=== PATIENT | male | born 1995 | race Caucasian/White ===

== ENCOUNTER 2017-01-24 18:49 | Emergency (ER) | payer BC ==
[2017-01-24 19:01] VITALS: BP 129/73
[2017-01-24] MEDS ORDERED: DOXYcycline CAP(*) 100 MG PO ONE (19:11)
--- NOTE | 2017-01-24 19:19 | UC ---
Skin Complaint HPI - HPI Summary HPI Summary: pt presents with c/o tick bite to left lateral ankle. Pt reports that he noticed the tick 2 hours ago and removed it at home. Is concerned because area where tick was removed is bruised and mild erythema. Pt is unsure of how long tick was attached - History of Current Complaint Chief Complaint: UCSkin Time Seen by Provider: 01/24/17 19:05 Stated Complaint: TICK Hx Obtained From: Patient Onset/Duration: Sudden Onset Timing: Constant Onset Severity: Mild Current Severity: Mild Location: Discrete - left lateral ankle Character: Redness Aggravating: Touch Associated Signs & Symptoms: Positive: Bruising, Tenderness Related History: Insect Bite/Sting - Allergy/Home Medications Allergies/Adverse Reactions: Allergies Allergy/AdvReac Type Severity Reaction Status Date / Time peanuts Allergy Swelling Uncoded 01/24/17 19:01 Of Face,Lips,& Throat Review of Systems Constitutional: Negative Skin: Bruising, Other - erythema size of eraser head Eyes: Negative ENT: Negative Respiratory: Negative Cardiovascular: Negative Gastrointestinal: Negative Genitourinary: Negative Motor: Negative Neurovascular: Negative Musculoskeletal: Negative Neurological: Negative Psychological: Negative All Other Systems Reviewed And Are Negative: Yes PMH/Surg Hx/FS Hx/Imm Hx Previously Healthy: Yes Endocrine History Of: Denies: Diabetes, Thyroid Disease, Hyperthyroidism, Hypothyroidism, Dyslipidemia Cardiovascular History Of: Denies: Cardiac Disorders, Hypertension, Pacemaker/ICD, Myocardial Infarction , Congestive Heart Failure, Atrial Fibrillation, Deep Vein Thrombosis, Bleeding Disorders Respiratory History Of: Reports: Asthma Denies: COPD GI/ History Of: Denies: Gastroesophageal Reflux, Ulcer, Gastrointestinal Bleed, Gall Bladder Disease, Kidney Stones, Diverticulitis, Renal Disease, Urosepsis Neurological History Of: Denies: TIA, CVA, Dementia, Seizures, Migraine Psychological History Of: Denies: Anxiety, Depression, Bipolar Disorder, Schizophrenia, Post Traumatic Stress Disorder Cancer History Of: Denies: Lung Cancer, Colorectal Cancer, Breast Cancer, Prostate Cancer, Cervical Cancer Other History Of: Negative For: HIV, Hepatitis B, Hepatitis C, Anticoagulant Therapy - Surgical History Surgical History: None - Family History Known Family History: Positive: Other - positive FMH of abrasion - Social History Alcohol Use: None Substance Use Type: Excessive Caffeine Smoking Status (MU): Current Every Day Smoker Type: Cigars Amount Used/How Often: 5 CIGS PER DAY Have You Smoked in the Last Year: Yes Household Exposure Type: Cigarettes Physical Exam Triage Information Reviewed: Yes Appearance: Well-Appearing Vital Signs: Initial Vital Signs Temp 99.1 F 01/24/17 18:57 Pulse 73 01/24/17 18:57 Resp 17 01/24/17 18:57 BP 129/73 01/24/17 18:57 Pulse Ox 98 01/24/17 18:57 Vital Signs Reviewed: Yes Eye Exam: Normal Neck exam: Normal Respiratory Exam: Normal Cardiovascular Exam: Normal Musculoskeletal Exam: Normal Neurological Exam: Normal Psychological Exam: Normal Skin Exam: Other - left lateral malleolus , eraser size area that is bruised and mild erythema Course/Dx - Differential Diagnoses - Skin Complaint Differential Diagnoses: Cellulitis, Tick Born Illness, Other - insect bite - Diagnoses Provider Diagnoses: insect bite. possible exposure to tick borne illness Discharge - Discharge Plan Condition: Stable Disposition: HOME Patient Education Materials: Insect Bite or Sting (ED) Referrals: [facility] [Outside] Gayle Ware MD [Primary Care Provider] - If Needed Additional Instructions: Please follow up with your PCP or return to clinic as needed.
== END 2017-01-24 19:27 | disposition home or self-care (01) ==
LOC: UCCORT 18:49
DX: S90.562A Insect bite (nonvenomous), left ankle, initial encounter (principal); W57.XXXA Bitten or stung by nonvenomous insect and other nonvenomous arthropods, initial encounter; Y93.9 Activity, unspecified; Y99.9 Unspecified external cause status; F17.210 Nicotine dependence, cigarettes, uncomplicated
CPT/HCPCS: 99212; A9270-GY; G0463

== ENCOUNTER 2019-05-01 13:38 | Emergency (ER) | payer BC ==
[2019-05-01 14:14] VITALS: BP 117/69
--- NOTE | 2019-05-01 14:44 | UC ---
Cardiac HPI - HPI Summary HPI Summary: 23 yo male woke about 6:30 am. He rolled onto his left side and had sharp left sided CP This pain has been reproduced throughout the day with certain left arm movements and deep breaths pain is sharp and short lived. No SOB no abd pain no back pain no n/v/d Pain especially bad if he bends over and picks up something with his left arm - History of Current Complaint Chief Complaint: UCChestPain Stated Complaint: CHEST DISCOMFORT Time Seen by Provider: 05/01/19 14:29 Hx Obtained From: Patient Onset/Duration: Sudden Onset, Lasting Hours Timing: Intermittent Episodes Lasting: - sec Initial Severity: Moderate Current Severity: None Pain Intensity: 0 Chest Pain Location: Discrete at: Character: Sharp/Stabbing Alleviating Factor(s): Position, Spontaneous Resolution Associated Signs & Symptoms: Positive: Chest Pain. Negative: Vision Changes, Anxiety, Recent Stress, Headaches, Numbness, Tingling, Weakness, Dizziness, SOB , Swelling, Syncope, Fever, Diaphoresis, Nausea/Vomiting, Palpitations, Cough, Hemoptysis, Back Pain, Abdominal Pain, Calf Pain/Swelling - Allergy/Home Medications Allergies/Adverse Reactions: Allergies Allergy/AdvReac Type Severity Reaction Status Date / Time peanuts Allergy Swelling Uncoded 05/01/19 14:14 Of Face,Lips,& Throat PMH/Surg Hx/FS Hx/Imm Hx Previously Healthy: Yes Other History Of: Negative For: HIV, Hepatitis B, Hepatitis C, Anticoagulant Therapy - Surgical History Surgical History: Yes Surgery Procedure, Year, and Place: R knee arthroscopy - Family History Known Family History: Positive: Diabetes, Other - positive FMH of abrasion - Social History Alcohol Use: None Substance Use Type: None Smoking Status (MU): Former Smoker Type: Cigars Amount Used/How Often: 5 CIGS PER DAY Have You Smoked in the Last Year: Yes When Did the Patient Quit Smoking/Using Tobacco: 04/17/19 Household Exposure Type: Cigarettes Review of Systems All Other Systems Reviewed And Are Negative: Yes Constitutional: Positive: Negative Skin: Positive: Negative Eyes: Positive: Negative ENT: Positive: Negative Respiratory: Positive: Negative Cardiovascular: Positive: Chest Pain Gastrointestinal: Positive: Negative Genitourinary: Positive: Negative Motor: Positive: Negative Neurovascular: Positive: Negative Musculoskeletal: Positive: Negative Neurological: Positive: Negative Psychological: Positive: Negative Physical Exam Triage Information Reviewed: Yes Appearance: Well-Appearing, No Pain Distress, Well-Nourished Vital Signs: Initial Vital Signs Temp 97.9 F 05/01/19 14:08 Pulse 55 05/01/19 14:08 Resp 17 05/01/19 14:08 BP 117/69 05/01/19 14:08 Pulse Ox 100 05/01/19 14:08 Vital Signs Reviewed: Yes Eye Exam: Normal Eyes: Positive: Conjunctiva Clear ENT: Positive: Hearing grossly normal. Negative: Nasal congestion, TMs normal, Trismus, Muffled voice, Hoarse voice Dental Exam: Normal Neck: Positive: Supple, Nontender, No Lymphadenopathy Respiratory: Positive: Lungs clear, Normal breath sounds, No respiratory distress, No accessory muscle use. Negative: Chest non-tender Cardiovascular: Positive: RRR, No Murmur Abdomen Description: Positive: Nontender, No Organomegaly. Negative: CVA Tenderness (R), CVA Tenderness (L), Guarding Bowel Sounds: Positive: Present Musculoskeletal: Positive: ROM Intact, No Edema Neurological: Positive: Alert Psychological Exam: Normal Skin Exam: Normal Images Front/Back of Body, Lg (Harris): 1 - tender here - Clinical Impression Provider Diagnosis: Acute chest wall pain Discharge - Sign-Out/Discharge Documenting (check all that apply): Patient Departure All imaging exams completed and their final reports reviewed: No Studies - Discharge Plan Condition: Stable Disposition: HOME Patient Education Materials: Chest Wall Pain (ED) Forms: *Work Release Referrals: No Primary Care Phys,NOPCP [Primary Care Provider] - Additional Instructions: avoid activities that cause pain ice twice daily advil recheck in 2 weeks if not better - Billing Disposition and Condition Condition: STABLE Disposition: Home
== END 2019-05-01 14:49 | disposition home or self-care (01) ==
LOC: UCCORT 13:38
DX: R07.89 Other chest pain (principal); Z87.891 Personal history of nicotine dependence
CPT/HCPCS: 99211; G0463